=== PATIENT | male | born 1950 | race Caucasian/White ===

== ENCOUNTER 2016-12-27 15:40 | Emergency (ER) | payer OTHER ==
[2016-12-27 19:13] LABS: Hematocrit 49 % (42-52); Hemoglobin 16.1 g/dl (14.0-18.0); Mean Corpuscular HGB Conc 33 g/dl (31-36); Mean Corpuscular Hemoglobin 32 pg (27-31); Mean Corpuscular Volume 98 fL (80-94); Mean Platelet Volume 8 um3 (7.4-10.4); Red Cell Distribution Width 15 % (10.5-15); White Blood Count 10.9 10^3/ul (3.5-10.8)
[2016-12-27 19:29] LABS: Albumin 4.3 g/dL (3.2-5.2); BUN/Creatinine Ratio 16.2 (8-20); Calcium 10.4 mg/dL (8.6-10.3); EGFR African American 149.6 (>60); EGFR Non-African American 116.3 (>60); Potassium 4.2 mmol/L (3.5-5.0); Total Bilirubin 0.7 mg/dL (0.2-1.0); Total Protein 9.3 g/dL (6.4-8.9)
[2016-12-27 22:01] VITALS: BP 123/58
--- NOTE | 2016-12-27 22:03 | ED ---
I, DoctorLucrecia, scribed for Bryn Ya MD on 12/27/16 at 1649 . GI/ HPI - HPI Summary HPI Summary: 66 year old male arrived to [facility] c/o that his catheter was not fully in place. He reports feeling 'cold, clammy, and sweaty' as well; denies any n/v/d or fever. He has had a catheter in place (put in every 4 weeks) since 2009; he reports that the catheter that was placed today is not 'in all the way,' although it is draining. He has not experienced these symptoms previously. He is a non-smoker; he sees his PCP (Dr. Monteiro) regularly and lives at [facility]. - History of Current Complaint Chief Complaint: EDUrogenitalProblems Time Seen by Provider: 12/27/16 16:45 Stated Complaint: GROIN PAIN Hx Obtained From: Patient Onset/Duration: Started Hours Ago Associated Signs and Symptoms: Positive: Diaphoresis, Chills, Other: - "clammy" . Negative: Nausea, Vomiting, Diarrhea, Fever - Allergy/Home Medications Allergies/Adverse Reactions: Allergies Allergy/AdvReac Type Severity Reaction Status Date / Time No Known Allergies Allergy Verified 04/01/16 16:28 PMH/Surg Hx/FS Hx/Imm Hx Infectious Disease History: Yes Infectious Disease History: Denies: Traveled Outside the [place] in Last 30 Days - Social History Lives: Assisted Living - [place] Alcohol Use: None Substance Use Type: Reports: None Smoking Status (MU): Never Smoked Tobacco Review of Systems Positive: Chills, Skin Diaphoresis. Negative: Fever Negative: Vomiting, Diarrhea, Nausea All Other Systems Reviewed And Are Negative: Yes Physical Exam - Summary Physical Exam Summary: General appearance: well appearing, NAD, normal development, good nutrition, normal body habitus, well groomed HEENT: normocephalic, atraumatic, ears and nose without masses or lesions conjunctivae normal Neck: symmetric without masses or tracheal deviation, no thyromegaly Chest: normal respiratory effort Cardiovascular: good color, warmth, and capillary refill in extremities, no peripheral edema Skin: no visible rashes, lesions, or ulcers Abdomen: belly not distended, abdomen obese, soft, non-tender : bladder not distended Musculoskeletal: atrophy of lower extremities Neurological/Psychiatric: good fine motor coordination, sensation intact to light touch distally, cranial nerves II-XII grossly intact, appropriate judgment and insight, oriented to time, place and person, normal mood and affect Triage Information Reviewed: Yes Vital Signs On Initial Exam: Initial Vitals Temp Pulse Resp BP Pulse Ox 98 F 55 20 167/66 95 12/27/16 16:25 12/27/16 16:25 12/27/16 16:25 12/27/16 16:25 12/27/16 16:25 Vital Signs Reviewed: Yes - [place]man Coma Scale Coma Scale Total: 15 Diagnostics - Vital Signs Vital Signs Temp Pulse Resp BP Pulse Ox 12/27/16 16:25 98 F 55 20 167/66 95 - Laboratory Lab Results: Lab Results 12/27/16 12/27/16 12/27/16 Range/Units 19:02 19:02 19:02 WBC 10.9 H (3.5-10.8) 10^3/ul RBC 5.00 (4.0-5.4) 10^6/ul Hgb 16.1 (14.0-18.0) g/dl Hct 49 (42-52) % MCV 98 H (80-94) fL MCH 32 H (27-31) pg MCHC 33 (31-36) g/dl RDW 15 (10.5-15) % Plt Count 213 (150-450) 10^3/ul MPV 8 (7.4-10.4) um3 Neut % (Auto) 69.6 (38-83) % Lymph % (Auto) 20.3 L (25-47) % Gallia % (Auto) 7.5 (1-9) % Eos % (Auto) 1.9 (0-6) % Baso % (Auto) 0.7 (0-2) % Absolute Neuts (auto) 7.6 (1.5-7.7) 10^3/ul Absolute Lymphs (auto) 2.2 (1.0-4.8) 10^3/ul Absolute Monos (auto) 0.8 (0-0.8) 10^3/ul Absolute Eos (auto) 0.2 (0-0.6) 10^3/ul Absolute Basos (auto) 0.1 (0-0.2) 10^3/ul Absolute Nucleated RBC 0.01 10^3/ul Nucleated RBC % 0.1 INR (Anticoag Therapy) 2.50 H (0.89-1.11) Sodium (133-145) mmol/L Potassium (3.5-5.0) mmol/L Chloride (101-111) mmol/L Carbon Dioxide (22-32) mmol/L Anion Gap (2-11) mmol/L BUN (6-24) mg/dL Creatinine (0.67-1.17) mg/dL Est GFR ( Amer) (>60) Est GFR (Non-Af Amer) (>60) BUN/Creatinine Ratio (8-20) Glucose (70-100) mg/dL Lactic Acid 1.9 (0.5-2.0) mmol/L Calcium (8.6-10.3) mg/dL Total Bilirubin (0.2-1.0) mg/dL AST (13-39) U/L ALT (7-52) U/L Alkaline Phosphatase (34-104) U/L Total Protein (6.4-8.9) g/dL Albumin (3.2-5.2) g/dL Globulin (2-4) g/dL Albumin/Globulin Ratio (1-3) //17 Range/Units 19:02 WBC (3.5-10.8) 10^3/ul RBC (4.0-5.4) 10^6/ul Hgb (14.0-18.0) g/dl Hct (42-52) % MCV (80-94) fL MCH (27-31) pg MCHC (31-36) g/dl RDW (10.5-15) % Plt Count (150-450) 10^3/ul MPV (7.4-10.4) um3 Neut % (Auto) (38-83) % Lymph % (Auto) (25-47) % Gallia % (Auto) (1-9) % Eos % (Auto) (0-6) % Baso % (Auto) (0-2) % Absolute Neuts (auto) (1.5-7.7) 10^3/ul Absolute Lymphs (auto) (1.0-4.8) 10^3/ul Absolute Monos (auto) (0-0.8) 10^3/ul Absolute Eos (auto) (0-0.6) 10^3/ul Absolute Basos (auto) (0-0.2) 10^3/ul Absolute Nucleated RBC 10^3/ul Nucleated RBC % INR (Anticoag Therapy) (0.89-1.11) Sodium 135 (133-145) mmol/L Potassium 4.2 (3.5-5.0) mmol/L Chloride 99 L (101-111) mmol/L Carbon Dioxide 29 (22-32) mmol/L Anion Gap 7 (2-11) mmol/L BUN 11 (6-24) mg/dL Creatinine 0.68 (0.67-1.17) mg/dL Est GFR ( Amer) 149.6 (>60) Est GFR (Non-Af Amer) 116.3 (>60) BUN/Creatinine Ratio 16.2 (8-20) Glucose 118 H (70-100) mg/dL Lactic Acid (0.5-2.0) mmol/L Calcium 10.4 H (8.6-10.3) mg/dL Total Bilirubin 0.70 (0.2-1.0) mg/dL AST 42 H (13-39) U/L ALT 37 (7-52) U/L Alkaline Phosphatase 110 H (34-104) U/L Total Protein 9.3 H (6.4-8.9) g/dL Albumin 4.3 (3.2-5.2) g/dL Globulin 5.0 H (2-4) g/dL Albumin/Globulin Ratio 0.9 L (1-3) Result Diagrams: 12/27/16 19:02 12/27/16 19:02 Lab Statement: Any lab studies that have been ordered have been reviewed, and results considered in the medical decision making process. Re-Evaluation - Re-Evaluation First Eval Re-Evaluation Time: 18:42 Change: Unchanged Comment: Discussed treatment plan; labs pending Second Eval Re-Evaluation Time: 19:47 Change: Unchanged Comment: pt's stool is still bloody Third Eval Re-Evaluation Time: 20:56 Change: Improved - pt is feeling better GIGU Course/Dx - Course Course Of Treatment: 21:11 - Lagunas catheter replaced, but many blood clots present. Copious irrigation until catheter was clear. Labs are negative. - Diagnoses Differential Diagnoses - Male: Other - blocked lagunas, hematuria, Provider Diagnoses: Encounter for Lagunas catheter replacement, Clot hematuria, Anticoagulant long- term use Provider Diagnoses: (Ruled Out): Hematochezia Discharge - Discharge Plan Condition: Improved Disposition: HOME Patient Education Materials: Lagunas Catheter Placement and Care (ED) Referrals: Kenyon Suresh MD [Primary Care Provider] - Jorden OLIVEIRA,Nik Lopez [Medical Doctor] - The documentation as recorded by the Doctor sprague Tahera accurately reflects the service I personally performed and the decisions made by me, Bryn Ya MD.
== END 2016-12-27 22:24 | disposition home or self-care (01) ==
LOC: ED 15:40
DX: T83.9XXA Unspecified complication of genitourinary prosthetic device, implant and graft, initial encounter (principal); R68.83 Chills (without fever); R61 Generalized hyperhidrosis
CPT/HCPCS: 36415; 80053; 83605; 85025; 85610; 87040; 99283

== ENCOUNTER 2017-01-05 22:46 | Emergency (ER) | payer OTHER ==
--- NOTE | 2017-01-05 23:44 | ED ---
Complaint/Male - History of Current Complaint Chief Complaint: EDUrogenitalProblems Time Seen by Provider: 01/05/17 23:27 Hx Obtained From: Patient Onset/Duration: Sudden Onset Timing: Constant Severity Initially: Mild Severity Currently: Mild Location: None Associated Signs And Symptoms: Negative - Risk Factors Testicular Torsion: Negative - Allergies/Home Medications Allergies/Adverse Reactions: Allergies Allergy/AdvReac Type Severity Reaction Status Date / Time No Known Allergies Allergy Verified 04/01/16 16:28 PMH/Surg Hx/FS Hx/Imm Hx Previously Healthy: Yes - Immunization History Hx Pertussis Vaccination: No Immunizations Up to Date: No Infectious Disease History: Yes Infectious Disease History: Denies: Traveled Outside the [place] in Last 30 Days - Social History Occupation: Unemployed Lives: At [facility] Alcohol Use: None Hx Substance Use: No Substance Use Type: Reports: None Hx Tobacco Use: No Smoking Status (MU): Never Smoked Tobacco Review Of Systems Constitutional: Positive: Negative Skin: Positive: Negative Respiratory: Positive: Negative Cardiovascular: Positive: Negative Genitourinary: Positive: Negative Musculoskeletal: Positive: Negative Neurological: Positive: Negative Psychological: Positive: Negative All Other Systems Reviewed And Are Negative: Yes Physical Exam Triage Information Reviewed: Yes Vital Signs On Initial Exam: Initial Vitals Temp Pulse Resp BP Pulse Ox 99 F 73 18 155/55 99 01/05/17 22:52 01/05/17 22:52 01/05/17 22:52 01/05/17 22:52 01/05/17 22:52 Vital Signs Reviewed: Yes Appearance: Positive: Well-Appearing, No Pain Distress, Well-Nourished Skin: Positive: Warm, Skin Color Reflects Adequate Perfusion Head/Face: Positive: Normal Head/Face Inspection Eyes: Positive: EOMI, ARACELI, Conjunctiva Clear Neck: Positive: Supple, No Lymphadenopathy Respiratory/Lung Sounds: Positive: Clear to Auscultation, Breath Sounds Present Cardiovascular: Positive: Normal, RRR, Pulses are Symmetrical in both Upper and Lower Extremities Abdomen Description: Positive: Nontender Bowel Sounds: Positive: Present Musculoskeletal: Positive: Normal, Strength/ROM Intact Neurological: Positive: Speech Normal Psychiatric: Positive: Normal AVPU Assessment: Alert Diagnostics - Vital Signs Vital Signs Temp Pulse Resp BP Pulse Ox 01/05/17 22:52 99 F 73 18 155/55 99 - Laboratory Lab Statement: Any lab studies that have been ordered have been reviewed, and results considered in the medical decision making process. Complaint Male Course/Dx - Course Course Of Treatment: Pt stated that his indwelling cath is clogged. Nursing staff tried to flush it twice without success and no clots were seen, but previous clots - patient now concerned lagunas is clogged d/tc clots. Upon arrival to ED, lagunas catheter is patent and bag is 1/2 full. He states improvement and flowing urine occurred on way to ED. Patient has no complaints and OK with discharge. - Differential Dx/Diagnosis Differential Diagnosis/HQI/PQRI: Cancer, Pyelonephritis, Trauma, Urinary Tract Infection Provider Diagnoses: Lagunas catheter problem
[2017-01-06 01:24] VITALS: BP 150/47
== END 2017-01-06 01:23 | disposition home or self-care (01) ==
LOC: ED 22:46
DX: T83.9XXA Unspecified complication of genitourinary prosthetic device, implant and graft, initial encounter (principal)
CPT/HCPCS: 99281

== ENCOUNTER 2017-04-05 05:23 | Emergency (ER) | payer MEDICARE, OTHER ==
[2017-04-05 05:35] VITALS: BP 147/72
--- NOTE | 2017-04-05 05:48 | ED ---
Lelia Ray Rebecca, scribed for Ky Roldan MD on 04/05/17 at 0540 . GI/ HPI - HPI Summary HPI Summary: Pt is a 67 y/o M BIBA who presents to ED c/o clogged lagunas catheter. Pt reports he was not drinking enough fluids and that the lagunas got clogged. While en route to [facility], the catheter became unblocked and on arrival, it is draining as it should. Sx aggravated by nothing, alleviated by spontaneous resolution. - History of Current Complaint Chief Complaint: EDUrogenitalProblems Time Seen by Provider: 04/05/17 05:36 Stated Complaint: CATH ISSUES Hx Obtained From: Patient Onset/Duration: Resolved Current Severity: None Pain Intensity: 0 - Negative pain Associated Signs and Symptoms: Positive: Other: - Clogged lagunas - resolved Aggravating Factor(s): Nothing Alleviating Factor(s): Spontaneous Resolution - Allergy/Home Medications Allergies/Adverse Reactions: Allergies Allergy/AdvReac Type Severity Reaction Status Date / Time No Known Allergies Allergy Verified 04/01/16 16:28 PMH/Surg Hx/FS Hx/Imm Hx Cardiovascular History: Denies: Hx Coronary Artery Disease Neurological History: Reports: Other Neuro Impairments/Disorders - Paraplegic Infectious Disease History: No Infectious Disease History: Denies: Traveled Outside the [place] in Last 30 Days - Family History Known Family History: Negative: Hypertension - Social History Alcohol Use: None Hx Substance Use: No Substance Use Type: Reports: None Hx Tobacco Use: No Smoking Status (MU): Never Smoked Tobacco Review of Systems Negative: Fever Positive: other - Clogged lagunas catheter - resolved INCLUSION PARAEDUCATOR All Other Systems Reviewed And Are Negative: Yes Physical Exam Triage Information Reviewed: Yes Vital Signs On Initial Exam: Initial Vitals Temp Pulse Resp BP Pulse Ox 98.2 F 62 18 147/72 95 04/05/17 05:26 04/05/17 05:26 04/05/17 05:26 04/05/17 05:26 04/05/17 05:26 Vital Signs Reviewed: Yes Appearance: Positive: Well-Appearing, No Pain Distress Skin: Positive: Warm Head/Face: Positive: Normal Head/Face Inspection Eyes: Positive: ARACELI ENT: Positive: Hearing grossly normal Neck: Positive: Supple Respiratory/Lung Sounds: Positive: Breath Sounds Present Cardiovascular: Positive: RRR Abdomen Description: Positive: Nontender, Soft, Other: - catheter draining clear urine Bowel Sounds: Positive: Present Neurological: Positive: Alert, Oriented to Person Place, Time Psychiatric: Positive: Affect/Mood Appropriate Diagnostics - Vital Signs Vital Signs Temp Pulse Resp BP Pulse Ox 04/05/17 05:26 98.2 F 62 18 147/72 95 - Laboratory Lab Statement: Any lab studies that have been ordered have been reviewed, and results considered in the medical decision making process. Re-Evaluation - Re-Evaluation First Eval Change: Improved - lagunas catheter draining clear urine GIGU Course/Dx - Course Assessment/Plan: Pt is a 67 y/o M BIBA who presents to ED c/o clogged lagunas catheter. Pt reports he was not drinking enough fluids and that the lagunas got clogged. While en route to [facility], the catheter became unblocked and on arrival , it is draining as it should. He will be D/C to home with Dx of foleycatheter problem. He understands and agrees. - Diagnoses Provider Diagnoses: Lagunas catheter problem Discharge - Discharge Plan Condition: Stable Disposition: HOME Patient Education Materials: Lagunas Catheter Placement and Care (ED) Referrals: Kenyon Suresh MD [Primary Care Provider] - 3 Days The documentation as recorded by the Lelia sprague Rebecca accurately reflects the service I personally performed and the decisions made by , Ky Roldan MD.
== END 2017-04-05 05:52 | disposition home or self-care (01) ==
LOC: ED 05:23
DX: T83.091A Other mechanical complication of indwelling urethral catheter, initial encounter (principal); Y84.6 Urinary catheterization as the cause of abnormal reaction of the patient, or of later complication, without mention of misadventure at the time of the procedure; Y92.9 Unspecified place or not applicable
CPT/HCPCS: 99282

== ENCOUNTER 2017-04-28 03:43 | Emergency (ER) | payer MEDICARE ==
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
[2017-04-28 05:56] VITALS: BP 112/54
== END 2017-04-28 05:54 | disposition home or self-care (01) ==
LOC: ED 03:43
DX: T83.9XXA Unspecified complication of genitourinary prosthetic device, implant and graft, initial encounter (principal); N39.0 Urinary tract infection, site not specified; G82.20 Paraplegia, unspecified
CPT/HCPCS: 99282

== ENCOUNTER 2017-05-02 08:29 | Inpatient (IN) | payer MEDICARE ==
--- NOTE | 2017-05-02 09:32 | RAD ---
HISTORY: Shortness of breath COMPARISONS: None VIEWS: 3: Frontal and lateral views of the chest. The lateral projection is technically limited FINDINGS: CARDIOMEDIASTINAL SILHOUETTE: The cardiac silhouette is enlarged. The cardiomediastinal silhouette is otherwise normal. FREIDA: The freida are normal. PLEURA: There is a small left pleural effusion. LUNG PARENCHYMA: There is focal opacification of the left lower lung ABDOMEN: The upper abdomen is clear. There is no subphrenic gas. BONES AND SOFT TISSUES: No bone or soft tissue abnormalities are noted. OTHER: None. IMPRESSION: 1. CARDIOMEGALY. 2. SMALL LEFT PLEURAL EFFUSION. 3. LEFT BASILAR OPACIFICATION. THE DIFFERENTIAL INCLUDES PNEUMONIC CONSOLIDATION VERSUS PULMONARY PARENCHYMAL MASS. RECOMMEND FOLLOW-UP UNTIL RESOLUTION TO EXCLUDE UNDERLYING PULMONARY PARENCHYMAL PATHOLOGY. IF THE CLINICAL PRESENTATION IS NOT CONSISTENT WITH INFECTION, CONSIDER FURTHER EVALUATION WITH CONTRAST-ENHANCED CT OF THE CHEST.
[2017-05-02 09:44] LABS: Hematocrit 33 % (42-52); Hemoglobin 11.5 g/dl (14.0-18.0); Mean Corpuscular HGB Conc 35 g/dl (31-36); Mean Corpuscular Hemoglobin 33 pg (27-31); Mean Corpuscular Volume 96 fL (80-94); Mean Platelet Volume 7 um3 (7.4-10.4); Red Cell Distribution Width 15 % (10.5-15); White Blood Count 13.2 10^3/ul (3.5-10.8)
[2017-05-02 09:49] LABS: Add Diff/Slide Review? Slide Review Added; Comments Flag Yes
[2017-05-02 10:01] LABS: Albumin 3.4 g/dL (3.2-5.2); BUN/Creatinine Ratio 10.2 (8-20); C Reactive Protein 80.62 mg/L (< 5.00); Calcium 8.4 mg/dL (8.6-10.3); EGFR African American 175.7 (>60); EGFR Non-African American 136.6 (>60); Globulin 3.9 g/dL (2-4); Potassium 4.2 mmol/L (3.5-5.0); Total Bilirubin 0.8 mg/dL (0.2-1.0); Total Protein 7.3 g/dL (6.4-8.9)
[2017-05-02 10:42] LABS: Immature Granulocytes 10 % (0-9); Neutrophil % 73 % (38-83); RBC Morphology Normal (Normal)
[2017-05-02] MEDS ORDERED: cefTRIAXone(*) 1 GM in NS 0.9% 50 ML* 50 ML IVPB ONE (11:05)
[2017-05-02] MEDS ORDERED: Azithromycin IV* 500 MG ADVAN VIAL IVPB ONE (11:06)
[2017-05-02] MEDS ORDERED: Acetaminophen TAB* 325 MG PO PRN (11:43)
[2017-05-02] MEDS ORDERED: Diazepam TAB(*) 2 MG PO PRN ×2 (11:45)
[2017-05-02] MEDS ORDERED: Baclofen TAB* 10 MG PO PRN (11:45)
[2017-05-02] MEDS ORDERED: Dextrose 50% Syringe 50 ML* 25 GM/50 ML SYRINGE IV PUSH PRN (11:46)
[2017-05-02 12:01] LABS: Add on Test ED Complete
[2017-05-02 13:08] LABS: Troponin I 0.05 ng/mL (<0.04)
[2017-05-02 13:38] LABS: Uric Acid 2.8 mg/dL (4.4-7.6)
[2017-05-02] MEDS: Sodium Chloride TAB* 1 GM PO SCH ×2 (15:14→21:43)
[2017-05-02] MEDS ORDERED: Albuterol/Ipratropium NEB.SOL* Albuterol 2.5 MG/Ipratropium 0.5 MG 3 ML INH PRN (15:50)
[2017-05-02] MEDS ORDERED: Albuterol/Ipratropium NEB.SOL* Albuterol 2.5 MG/Ipratropium 0.5 MG 3 ML ONE (15:56)
[2017-05-02] MEDS: Warfarin TAB(*) 1 MG PO SCH (16:48)
[2017-05-02] MEDS: Insulin LISPRO* 1 UNITS UNIT SUBCUT SCH (16:54)
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
[2017-05-02 19:10] LABS: Troponin I 0.03 ng/mL (<0.04)
[2017-05-02] MEDS: Baclofen TAB* 10 MG PO SCH (21:43)
[2017-05-02] MEDS: Docusate CAP* 100 MG PO SCH (21:44)
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
[2017-05-02 23:03] LABS: Troponin I 0.04 ng/mL (<0.04)
[2017-05-03 06:13] LABS: Hematocrit 34 % (42-52); Hemoglobin 11.5 g/dl (14.0-18.0); Mean Corpuscular HGB Conc 34 g/dl (31-36); Mean Corpuscular Hemoglobin 33 pg (27-31); Mean Corpuscular Volume 96 fL (80-94); Mean Platelet Volume 7 um3 (7.4-10.4); Red Blood Count 3.53 10^6/ul (4.0-5.4); Red Cell Distribution Width 15 % (10.5-15); White Blood Count 13.7 10^3/ul (3.5-10.8)
[2017-05-03 06:24] LABS: BUN/Creatinine Ratio 10.2 (8-20); Calcium 8.7 mg/dL (8.6-10.3); EGFR African American 217.7 (>60); EGFR Non-African American 169.3 (>60); Potassium 5.1 mmol/L (3.5-5.0)
[2017-05-03] MEDS ORDERED: Sodium Chloride 3% HYPERTONIC* 500 ML IVPB ONE (06:45)
[2017-05-03] MEDS: Insulin LISPRO* 1 UNITS UNIT SUBCUT SCH ×3 (07:54→17:04)
[2017-05-03] MEDS: cefTRIAXone VIAL(*) 1,000 MG in NS 0.9% 50 ML* 50 ML IVPB SCH (08:49)
--- NOTE | 2017-05-03 08:51 | PN ---
Subjective Date of Service: 05/03/17 Interval History: Mr. Wahl states that he is feeling relatively well today. He reports some shortness of breath but denies chest pain. He further denies nausea or abdominal pain. Objective Active Medications: Acetaminophen (Tylenol Tab*) 650 mg PO Q6H PRN Albuterol/Ipratropium (Duoneb (Albuterol 2.5 Mg/Ipratropium 0.5 Mg)) 1 neb INH Q4H PRN Azithromycin (Zithromax Iv(*)) 500 mg IVPB Q24H YAZAN Baclofen (Lioresal Tab*) 10 mg PO BID PRN Baclofen (Lioresal Tab*) 20 mg PO BID [facility] Clobetasol Propionate (Clobetasol 0.05% Oint*) 1 applic TOPICAL QAM [facility] Dextrose (D50w Syringe 50 Ml*) 12.5 gm IV PUSH .FOR FS < 60 - SS PRN Diazepam (Valium Tab(*)) 1 mg PO 1200 PRN Diazepam (Valium Tab(*)) 2 mg PO BID PRN Docusate Sodium (Colace Cap*) 100 mg PO BID [facility] Ceftriaxone Sodium 1,000 mg/ (Sodium Chloride) 50 mls @ 200 mls/hr IVPB Q24H [facility] Sodium Chloride (Hypertonic) (Hypertonic Sod Chloride 3%*) 500 mls @ 50 mls/hr IVPB ONCE ONE; Per Protocol Insulin Human Lispro (Humalog*) 0 units SUBCUT AC [facility] Lisinopril (Prinivil Tab*) 10 mg PO DAILY [facility] Pharmacy Profile Note (Coumadin Daily Reminder*) 1 note FOLLOW UP 1700 [facility] Warfarin Sodium (Coumadin Tab(*)) 1.5 mg PO 1700 [facility] Vital Signs 05/02/17 05/02/17 05/02/17 12:00 12:34 12:47 Temperature 97.6 F Pulse Rate 64 72 74 Respiratory 14 20 15 Rate Blood Pressure 126/48 124/66 117/51 (mmHg) O2 Sat by Pulse 93 94 93 Oximetry 05/02/17 05/02/17 05/02/17 13:00 13:01 13:16 Temperature Pulse Rate 71 73 Respiratory 18 17 18 Rate Blood Pressure 108/54 116/60 (mmHg) O2 Sat by Pulse 95 96 Oximetry 08/18/17 08/18/17 08/18/17 13:30 13:45 14:00 Temperature Pulse Rate 60 59 60 Respiratory 17 12 16 Rate Blood Pressure 123/55 120/58 127/53 (mmHg) O2 Sat by Pulse 95 95 90 Oximetry 05/02/17 05/02/17 05/02/17 14:15 14:30 14:45 Temperature Pulse Rate 63 64 70 Respiratory 17 14 16 Rate Blood Pressure 117/51 126/54 136/53 (mmHg) O2 Sat by Pulse 88 91 88 Oximetry 05/02/17 05/02/17 05/02/17 14:56 15:00 15:42 Temperature Pulse Rate 87 Respiratory 18 16 18 Rate Blood Pressure 155/76 (mmHg) O2 Sat by Pulse 95 Oximetry 05/02/17 05/02/17 05/02/17 15:45 16:04 16:32 Temperature 97.1 F Pulse Rate 96 79 Respiratory 18 17 Rate Blood Pressure 144/59 (mmHg) O2 Sat by Pulse 88 91 Oximetry 05/02/17 05/02/17 05/02/17 17:00 18:00 19:00 Temperature Pulse Rate 81 76 75 Respiratory 21 17 21 Rate Blood Pressure 144/55 157/63 146/65 (mmHg) O2 Sat by Pulse 95 93 91 Oximetry 05/02/17 05/02/17 05/02/17 20:00 21:00 21:44 Temperature 98.4 F Pulse Rate 73 74 Respiratory 21 20 19 Rate Blood Pressure 157/70 143/69 (mmHg) O2 Sat by Pulse 95 94 Oximetry 05/02/17 05/02/17 05/02/17 22:00 22:01 23:00 Temperature Pulse Rate 80 79 74 Respiratory 28 23 20 Rate Blood Pressure 164/64 115/44 (mmHg) O2 Sat by Pulse 95 96 94 Oximetry 05/02/17 05/03/17 05/03/17 23:34 00:00 00:48 Temperature 97.6 F Pulse Rate 67 79 Respiratory 18 17 Rate Blood Pressure 157/56 (mmHg) O2 Sat by Pulse 96 93 94 Oximetry 05/03/17 05/03/17 05/03/17 01:00 02:00 02:01 Temperature Pulse Rate 73 86 76 Respiratory 22 22 17 Rate Blood Pressure 134/56 160/68 (mmHg) O2 Sat by Pulse 95 93 92 Oximetry 05/03/17 05/03/17 05/03/17 02:15 03:00 03:01 Temperature Pulse Rate 80 80 83 Respiratory 22 19 17 Rate Blood Pressure 154/72 112/54 (mmHg) O2 Sat by Pulse 92 93 93 Oximetry 05/03/17 05/03/17 05/03/17 04:00 04:01 05:00 Temperature 100 F Pulse Rate 84 86 81 Respiratory 21 32 21 Rate Blood Pressure 145/64 156/72 (mmHg) O2 Sat by Pulse 93 93 95 Oximetry 05/03/17 05/03/17 05/03/17 06:00 06:34 07:38 Temperature 98.2 F Pulse Rate 80 76 Respiratory 16 22 Rate Blood Pressure 137/56 (mmHg) O2 Sat by Pulse 94 94 Oximetry Oxygen Devices in Use Now: Simple Face Mask Appearance: Male lying in bed in NAD Eyes: No Scleral Icterus Ears/Nose/Mouth/Throat: Mucous Membranes Moist Neck: Trachea Midline Respiratory: Symmetrical Chest Expansion and Respiratory Effort, - - Diminished with rhonchi bilaterally Cardiovascular: NL Sounds; No Murmurs; No JVD Abdominal: NL Sounds; No Tenderness; No Distention Lymphatic: No Cervical Adenopathy Extremities: No Edema Skin: - - Chronic skin changes to bilateral LEs with history of skin grafts Neurological: Alert and Oriented x 3, - - Paraplegic Result Diagrams: 05/03/17 05:50 05/03/17 05:50 Additional Lab and Data: Lab Results 05/02/17 05/02/17 05/02/17 Range/Units 09:33 09:33 09:33 WBC 13.2 H (3.5-10.8) 10^3/ul RBC 3.50 L (4.0-5.4) 10^6/ul Hgb 11.5 L (14.0-18.0) g/dl Hct 33 L (42-52) % MCV 96 H (80-94) fL MCH 33 H (27-31) pg MCHC 35 (31-36) g/dl RDW 15 (10.5-15) % Plt Count 200 (150-450) 10^3/ul MPV 7 L (7.4-10.4) um3 Immature Gran % (Auto) 10 H (0-9) % Neut % (Auto) 79.3 (38-83) % Lymph % (Auto) 12.9 L (25-47) % [place] % (Auto) 7.3 (1-9) % Eos % (Auto) 0.1 (0-6) % Baso % (Auto) 0.4 (0-2) % Absolute Neuts (auto) 10.5 H (1.5-7.7) 10^3/ul Absolute Lymphs (auto) 1.7 (1.0-4.8) 10^3/ul Absolute Monos (auto) 1.0 H (0-0.8) 10^3/ul Absolute Eos (auto) 0 (0-0.6) 10^3/ul Absolute Basos (auto) 0.1 (0-0.2) 10^3/ul Absolute Nucleated RBC 0.01 10^3/ul Neutrophils % 73 (38-83) % Band Neutrophils % 10 H (0-8) % Lymphocytes % 11 L (25-47) % Monocytes % 6 (0-13) % Nucleated RBC % 0 Normal RBC Morphology Normal (Normal) INR (Anticoag Therapy) 2.21 H (0.89-1.11) APTT 38.1 H (26.0-36.3) seconds Sodium 113 L* (133-145) mmol/L Potassium 4.2 (3.5-5.0) mmol/L Chloride 82 L (101-111) mmol/L Carbon Dioxide 25 (22-32) mmol/L Anion Gap 6 (2-11) mmol/L BUN 6 (6-24) mg/dL Creatinine 0.59 L (0.67-1.17) mg/dL Est GFR ( Amer) 175.7 (>60) Est GFR (Non-Af Amer) 136.6 (>60) BUN/Creatinine Ratio 10.2 (8-20) Glucose 142 H (70-100) mg/dL Hemoglobin A1c (Less than 6.0) % Lactic Acid (0.5-2.0) mmol/L Uric Acid 2.8 L (4.4-7.6) mg/dL Calcium 8.4 L (8.6-10.3) mg/dL Total Bilirubin 0.80 (0.2-1.0) mg/dL AST 42 H (13-39) U/L ALT 34 (7-52) U/L Alkaline Phosphatase 57 (34-104) U/L Total Creatine Kinase 203 (10-223) U/L CK-MB (CK-2) 3.0 (0.6-6.3) ng/mL Troponin I 0.05 H* (<0.04) ng/mL C-Reactive Protein 80.62 H (< 5.00) mg/L B-Natriuretic Peptide ( - 100) pg/mL Total Protein 7.3 (6.4-8.9) g/dL Albumin 3.4 (3.2-5.2) g/dL Globulin 3.9 (2-4) g/dL Albumin/Globulin Ratio 0.9 L (1-3) 05/02/17 05/02/17 05/02/17 Range/Units 09:33 09:33 09:33 WBC (3.5-10.8) 10^3/ul RBC (4.0-5.4) 10^6/ul Hgb (14.0-18.0) g/dl Hct (42-52) % MCV (80-94) fL MCH (27-31) pg MCHC (31-36) g/dl RDW (10.5-15) % Plt Count (150-450) 10^3/ul MPV (7.4-10.4) um3 Immature Gran % (Auto) (0-9) % Neut % (Auto) (38-83) % Lymph % (Auto) (25-47) % [place] % (Auto) (1-9) % Eos % (Auto) (0-6) % Baso % (Auto) (0-2) % Absolute Neuts (auto) (1.5-7.7) 10^3/ul Absolute Lymphs (auto) (1.0-4.8) 10^3/ul Absolute Monos (auto) (0-0.8) 10^3/ul Absolute Eos (auto) (0-0.6) 10^3/ul Absolute Basos (auto) (0-0.2) 10^3/ul Absolute Nucleated RBC 10^3/ul Neutrophils % (38-83) % Band Neutrophils % (0-8) % Lymphocytes % (25-47) % Monocytes % (0-13) % Nucleated RBC % Normal RBC Morphology (Normal) INR (Anticoag Therapy) (0.89-1.11) APTT (26.0-36.3) seconds Sodium (133-145) mmol/L Potassium (3.5-5.0) mmol/L Chloride (101-111) mmol/L Carbon Dioxide (22-32) mmol/L Anion Gap (2-11) mmol/L BUN (6-24) mg/dL Creatinine (0.67-1.17) mg/dL Est GFR ( Amer) (>60) Est GFR (Non-Af Amer) (>60) BUN/Creatinine Ratio (8-20) Glucose (70-100) mg/dL Hemoglobin A1c 6.9 H (Less than 6.0) % Lactic Acid 1.9 (0.5-2.0) mmol/L Uric Acid (4.4-7.6) mg/dL Calcium (8.6-10.3) mg/dL Total Bilirubin (0.2-1.0) mg/dL AST (13-39) U/L ALT (7-52) U/L Alkaline Phosphatase (34-104) U/L Total Creatine Kinase (10-223) U/L CK-MB (CK-2) (0.6-6.3) ng/mL Troponin I (<0.04) ng/mL C-Reactive Protein (< 5.00) mg/L B-Natriuretic Peptide 42 ( - 100) pg/mL Total Protein (6.4-8.9) g/dL Albumin (3.2-5.2) g/dL Globulin (2-4) g/dL Albumin/Globulin Ratio (1-3) Microbiology and Other Data: Microbiology 05/02/17 13:11 Legionella Urinary Antigen - Final Urine Negative Legionella Streptococcus pneumoniae Ag Screen - Final Negative S. pneumo Antigen Assess/Plan/Problems-Billing Assessment: Mr. Wahl is a 67 yo male with a PMH of paraplegia after an accident at age 17, chronic lagunas, and hypertension who was admitted on 05/02/17 with acute respiratory failure and hyponatremia secondary to left lower lobe pneumonia and SIADH. - Patient Problems (1) Hyponatremia Comment: - Na improving slowly with fluid restriction and sodium tabs. - Continue to monitor closely. (2) Pneumonia Comment: - With acute hypoxic respiratory failure, now on 10L. - Continue to titrate O2. - Continue ceftriaxone and azithromycin. 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 - Strep pneumo and legionella antigens negative. (3) UTI (urinary tract infection) Comment: - Note that patient has chronic lagunas. 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 - Lisinopril on hold during acute illness. (5) DVT prophylaxis Comment: - Warfarin with therapeutic INR. (6) Full code status Status and Disposition: Inpatient with critical illness and expected LOS > 2 days. Anticipate return to [place] when medically stable.
[2017-05-03] MEDS: Baclofen TAB* 10 MG PO SCH ×2 (08:53→20:40)
[2017-05-03] MEDS: Docusate CAP* 100 MG PO SCH ×2 (08:53→20:40)
[2017-05-03] MEDS: Lisinopril TAB* 10 MG PO SCH (08:53)
[2017-05-03] MEDS ORDERED: Warfarin TAB(*) 1 MG PO SCH (09:00)
[2017-05-03] MEDS ORDERED: Vancomycin(*) 1,250 MG in NS 0.9% 250 ML* 250 ML IVPB ONE (09:00)
[2017-05-03] MEDS: Azithromycin IV* 500 MG ADVAN VIAL IVPB SCH (09:02)
[2017-05-03] MEDS: Clobetasol 0.05% OINT* 30 GM TUBE TOPICAL SCH (10:27)
[2017-05-03] MEDS ORDERED: Sodium Chloride TAB* 1 GM PO ONE (10:32)
[2017-05-03] MEDS: Sodium Chloride TAB* 1 GM PO SCH ×2 (14:07→20:40)
[2017-05-03] MEDS: Warfarin TAB(*) 1 MG PO SCH (17:20)
[2017-05-03] MEDS: Vancomycin(*) 1,000 MG in NS 0.9% 250 ML* 250 ML IVPB SCH (18:22)
[2017-05-04 02:06] LABS: EPAP 8; FIO2 100; IPAP 18; Resp Rate 4
[2017-05-04 02:07] LABS: PCO2 Arterial 98 mmHg (35-45)
[2017-05-04] MEDS: Vancomycin(*) 1,000 MG in NS 0.9% 250 ML* 250 ML IVPB SCH ×2 (02:38→12:22)
[2017-05-04] MEDS ORDERED: Furosemide IV* 10 MG/ML VIAL (40 MG) IV ONE (03:46)
[2017-05-04] MEDS ORDERED: Succinylcholine* 20 MG/ML 10 ML VIAL ONE (04:32)
[2017-05-04] MEDS ORDERED: Midazolam* 1 MG/ML 10 ML VIAL (10 MG) ONE (04:39)
[2017-05-04] MEDS ORDERED: DOPamine 200 MG/250 ML IVPREM* 200 MG/250 ML ML IV ONE (05:18)
--- NOTE | 2017-05-04 05:18 | PN ---
Progress Note - Progress Note Date of Service: 05/04/17 Note: Event note: Patient had new hypoxia in 88-89 O2 sat range earlier in night around 3am. He was less responsive. We started him on BiPAP which he tolerated, and portable CXR showed complete opacification of LT lung. ABG showed pH 7.14, pCO2 74, adequate oxygenation. He was obtunded, did not respond to sternal rub or arterial stick. Decision was made to place ET tube. Patient sedated w/ 10 mg versed. 8f ET tube placed w/ glidescope but would not pass fully into place due to apparent tracheal stenosis. 7f ET tube placed w/ glidescope, advanced w/ some difficulty. [place] frothy sputum suctioned, copious. There was some initial tachycardia, hypotension, resolved w/o intervention. There was some difficulty getting adequate tidal volumes, this improved w/ suctioning, got better volumes but requiring peak pressure around 40. Repeat CXR showed tube in place above the davey, needed 2 cm advancement. OG tube in stomach. Less opacification seen in L lung field.
[2017-05-04] MEDS ORDERED: DOPamine 200 MG/250 ML IVPREM* 200 MG/250 ML ML IV SCH (05:30)
[2017-05-04 06:07] LABS: FIO2 100; Resp Rate 20
[2017-05-04 06:13] LABS: PCO2 Arterial 117 mmHg (35-45)
[2017-05-04 06:54] LABS: Hematocrit 39 % (42-52); Hemoglobin 13.2 g/dl (14.0-18.0); Mean Corpuscular HGB Conc 33 g/dl (31-36); Mean Corpuscular Hemoglobin 33 pg (27-31); Mean Corpuscular Volume 99 fL (80-94); Mean Platelet Volume 7 um3 (7.4-10.4); Red Blood Count 3.99 10^6/ul (4.0-5.4); Red Cell Distribution Width 15 % (10.5-15); White Blood Count 20.4 10^3/ul (3.5-10.8)
[2017-05-04 06:55] LABS: Add Diff/Slide Review? Slide Review Added; Comments Flag Yes
[2017-05-04 07:07] LABS: BUN/Creatinine Ratio 13.8 (8-20); Calcium 8.9 mg/dL (8.6-10.3); EGFR African American 179.2 (>60); EGFR Non-African American 139.3 (>60); Magnesium 2.1 mg/dL (1.9-2.7); Phosphorus 3.7 mg/dL (2.5-5.0)
[2017-05-04 07:28] LABS: Immature Granulocytes 8 % (0-9); Neutrophil % 85 % (38-83); RBC Morphology Normal (Normal)
--- NOTE | 2017-05-04 07:39 | RAD ---
INDICATION: Intubation COMPARISON: May 04, 2017 TECHNIQUE: An AP portable view obtained at 0456 hours is submitted. FINDINGS: Bones/Soft Tissues: There are no acute bony findings. There is interval endotracheal intubation. Endotracheal tube is in satisfactory position approximately 4 cm above the davey. A nasogastric tube passes normally through the mediastinum Cardiomediastinal: The cardiomediastinal silhouette is normal. There is interstitial edema. Lungs: There is now aeration of the left hemithorax. There is moderate interstitial and alveolar change in the lung bases. Pleura: Small bilateral pleural effusions. Other: None IMPRESSION: ENDOTRACHEAL TUBE IN PROPER POSITION. THERE IS NOW AERATION OF THE LEFT HEMITHORAX. MILD INTERSTITIAL AND ALVEOLAR EDEMA IS SUSPECTED.
--- NOTE | 2017-05-04 07:40 | RAD ---
INDICATION: Respiratory failure COMPARISON: May 02, 2017 TECHNIQUE: An AP portable view obtained at 0356 hours is submitted. FINDINGS: Bones/Soft Tissues: There are no acute bony findings. Cardiomediastinal: The cardiac silhouette is difficult to evaluate due to opacification left hemithorax. This represents a new finding. Lungs: There is airspace disease in the right lung base. This is new. Pleura: Small bilateral effusions. Other: None IMPRESSION: THERE IS NOW COMPLETE OPACIFICATION LEFT HEMITHORAX AND THERE IS CONSOLIDATIVE CHANGE RIGHT LUNG BASE WITH BILATERAL EFFUSIONS.
[2017-05-04] MEDS ORDERED: Midazolam* 1 MG/ML 5 ML VIAL (5 MG) ONE (08:32)
[2017-05-04] MEDS ORDERED: Norepinephrine 16MCG/ML IVPRE* 4,000 MCG/250 ML BAG IV ONE (08:32)
[2017-05-04] MEDS ORDERED: Propofol* 100 ML ONE (08:32)
[2017-05-04 08:36] LABS: PCO2 Arterial 92 mmHg (35-45)
--- NOTE | 2017-05-04 08:49 | PN ---
Progress Note - Progress Note Date of Service: 05/04/17 Note: Central Line Procedure Note Indication: Hypotension/shock, poor vascular access Consent was informed and obtained from brother , placed in bedside chart. Risks of procedure were explained if possible, all risks of pain/discomfort, bleeding, infection, PTX, Hemotx, need for chest tube, air/wire embolism, vessel injury, , and failed procedure disclosed and understanding verbalized - Prior labs/history was reviewed prior to procedure - Full sterile precautions with chlorhexidine/full drapes/gowns/gloves utilized - left IJ vein visualized with ultrasound; right IJ small and not a good target - Vessel accessed under ultrasound guidance with return of nonpulsatile blood. A guidewire was passed into vessel and confirmed in vessel with ultrasound. 1 attempt was made to access vessel. Vessel was dilated and cathetor was passed over wire into vessel. All ports demonstrated good blood return and flushed. Catheter was sutured to site and dressing applied Adequate hemostasis was achieved, EBL 4 cc No immediate complications noted, patient tolerated procedure well. CXR pending for confirmation Titus Goodman MD [employer] (electronically signed)
--- NOTE | 2017-05-04 08:49 | PN ---
Progress Note - Progress Note Date of Service: 05/04/17 Note: Arterial Line Procedure Note Indication: hypotension/shock, respiratory failure, need for continuos blood gases Consent was informed and obtained from brother , placed in bedside chart. Risk/Benefits of procedure explained. - Prior labs/history was reviewed prior to procedure - Full sterile precautions with chlorhexidine/full drapes/gowns/gloves utilized - rigth radial artery visualized with US - Vessel accessed with return of pulsatile blood. 1 attempt was made to access vessel. A cathetor was threaded over wire into vessel. Good arterial waveform was observed on monitor. - Arterial Catheter was sutured to site - Adequate hemostasis was achieved, EBL 2 cc No immediate complications noted, patient tolerated procedure well. Dressing applied to site. Titus Goodman MD [place] (electronically signed)
[2017-05-04] MEDS ORDERED: Albuterol (2.5 MG) 0.5 % CONC 2.5 MG/0.5 ML NEB.SOLN (ICU and ED only) INH STA (08:58)
[2017-05-04] MEDS ORDERED: methylPREDNISolone 125 MG* 2 ML VIAL IV STA (09:00)
[2017-05-04] MEDS ORDERED: Terbutaline INJ* 1 MG/ML VIAL SUBCUT ONE (09:01)
[2017-05-04] MEDS ORDERED: NS 0.9% 500 ML BAG* 500 ML IV ONE (09:03)
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
[2017-05-04] MEDS: Propofol* 100 ML IV SCH ×2 (09:14→17:15)
--- NOTE | 2017-05-04 09:18 | RAD ---
INDICATION: Central line placement COMPARISON: Chest x-ray ,017 TECHNIQUE: An AP portable view obtained at 0836 hours is submitted. FINDINGS: Bones/Soft Tissues: There are no acute bony findings. The endotracheal and nasogastric tubes remain in satisfactory positions. There is now a left IJ catheter terminating in the superior vena cava. There is no pneumothorax. Cardiomediastinal: Mild prominence the cardiac silhouette. Lungs: Interstitial and alveolar change likely edema although there could also be a acute pneumonitis.. Pleura: Small bilateral effusions. Other: None IMPRESSION: IJ CATHETER IN EXPECTED POSITION. NO PNEUMOTHORAX. ENDOTRACHEAL TUBE IN SATISFACTORY POSITION. SUSPECT MILD INTERSTITIAL AND ALVEOLAR EDEMA
[2017-05-04] MEDS: cefTRIAXone VIAL(*) 1,000 MG in NS 0.9% 50 ML* 50 ML IVPB SCH (09:26)
[2017-05-04] MEDS ORDERED: Vancomycin(*) 1,250 MG IV x ONCE IVPB ONE ×2 (10:00)
[2017-05-04] MEDS ORDERED: Vancomycin Trough Check NOTE FOLLOW UP ONE (10:00)
[2017-05-04] MEDS ORDERED: Vancomycin(*) 1,000 MG in NS 0.9% 250 ML* 250 ML IVPB SCH (10:00)
[2017-05-04] MEDS ORDERED: Vancomycin per Pharmacy* NOTE FOLLOW UP SCH (10:00)
[2017-05-04] MEDS: Insulin LISPRO* 1 UNITS UNIT SUBCUT SCH ×4 (10:00→23:58)
[2017-05-04] MEDS: Azithromycin IV(*) 500 MG in NS 0.9% 250 ML* 250 ML IVPB SCH (10:50)
[2017-05-04 10:59] LABS: Venous Bicarbonate HCO3 21.4 mmol/L (24-28)
[2017-05-04] MEDS: Dexmedetomidine* 200 MCG in NS 0.9% 50 ML* 48 ML IVPB SCH ×2 (11:12→17:50)
[2017-05-04] MEDS: Docusate CAP* 100 MG PO SCH ×2 (11:13→21:41)
[2017-05-04] MEDS: Baclofen TAB* 10 MG PO SCH ×2 (11:13→21:15)
[2017-05-04] MEDS: Lisinopril TAB* 10 MG PO SCH (11:13)
[2017-05-04] MEDS: Sodium Chloride TAB* 1 GM PO SCH ×3 (11:13→21:40)
[2017-05-04] MEDS: Chlorhexidine MOUTHWASH 0.12%* 15 ML UDC TOPICAL SCH ×4 (11:50→21:16)
[2017-05-04 12:12] LABS: PCO2 Arterial 77 mmHg (35-45)
[2017-05-04] MEDS: Norepinephrine 16MCG/ML IVPRE* 4,000 MCG/250 ML BAG IV SCH ×2 (13:51→21:16)
[2017-05-04] MEDS: Clobetasol 0.05% OINT* 30 GM TUBE TOPICAL SCH (13:51)
[2017-05-04] MEDS: Vancomycin(*) 750 MG in NS 0.9% 250 ML* 250 ML IVPB SCH ×2 (13:53→23:09)
[2017-05-04 15:09] LABS: FIO2 100; Resp Rate 28
[2017-05-04] MEDS: Albuterol/Ipratropium NEB.SOL* Albuterol 2.5 MG/Ipratropium 0.5 MG 3 ML INH PRN ×3 (15:12→23:38)
[2017-05-04 15:13] LABS: PCO2 Arterial 61 mmHg (35-45)
[2017-05-04 15:28] LABS: Urine Bacteria Absent (Absent); Urine Bilirubin Negative (Negative); Urine Glucose 1+(50 mg/dL) (Negative); Urine Nitrite Negative (Negative)
--- NOTE | 2017-05-04 15:51 | PN ---
Progress Note - Progress Note Date of Service: 05/04/17 Note: ABG reviewed - PCO2 slowly improving, po2 70 on 70% peep 14. Cont current vent settings CXR with bilateral infiltrates but more on left than right; edema vs pneumonitis Will cont to tx for pneumonia. Would attempt to place on ARDS net protocol; being cautious of the hypercapnea. Requiring hi peep still. Titus Goodman Marking [employer]cher
[2017-05-04] MEDS: methylPREDNISolone 125 MG* 2 ML VIAL IV SCH ×2 (16:41→23:59)
[2017-05-04] MEDS ORDERED: NS IV SCH ×4 (17:00)
[2017-05-04] MEDS ORDERED: NS IV ONE ×2 (17:00)
[2017-05-04] MEDS ORDERED: SODIUM BICARBONATE IV ONE ×2 (17:00)
[2017-05-04] MEDS ORDERED: SODIUM BICARBONATE IV SCH ×4 (17:00)
[2017-05-04 20:43] LABS: PCO2 Arterial 49 mmHg (35-45)
[2017-05-04] MEDS: Warfarin TAB(*) 1 MG PO SCH (21:15)
[2017-05-04] MEDS ORDERED: Lactated Ringers 500 ml BAG* 500 ML IV ONE (23:00)
[2017-05-05] MEDS: Propofol* 100 ML IV SCH ×4 (02:13→21:45)
[2017-05-05] MEDS: Chlorhexidine MOUTHWASH 0.12%* 15 ML UDC TOPICAL SCH ×6 (02:54→21:25)
[2017-05-05] MEDS: Dexmedetomidine* 200 MCG in NS 0.9% 50 ML* 48 ML IVPB SCH (02:55)
[2017-05-05 06:13] LABS: Hematocrit 35 % (42-52); Hemoglobin 11.6 g/dl (14.0-18.0); Mean Corpuscular HGB Conc 34 g/dl (31-36); Mean Corpuscular Hemoglobin 33 pg (27-31); Mean Corpuscular Volume 97 fL (80-94); Mean Platelet Volume 7 um3 (7.4-10.4); Red Blood Count 3.57 10^6/ul (4.0-5.4); Red Cell Distribution Width 15 % (10.5-15); White Blood Count 19.4 10^3/ul (3.5-10.8)
[2017-05-05] MEDS: Insulin LISPRO* 1 UNITS UNIT SUBCUT SCH ×3 (06:13→18:48)
[2017-05-05 06:27] LABS: PCO2 Arterial 59 mmHg (35-45)
[2017-05-05] MEDS: Vancomycin(*) 750 MG in NS 0.9% 250 ML* 250 ML IVPB SCH ×3 (06:28→21:16)
[2017-05-05 06:32] LABS: BUN/Creatinine Ratio 10.9 (8-20); Calcium 7.9 mg/dL (8.6-10.3); EGFR African American 50.1 (>60); Potassium 4.7 mmol/L (3.5-5.0)
--- NOTE | 2017-05-05 08:11 | RAD ---
INDICATION: Pneumonia COMPARISON: May 04, 2017 TECHNIQUE: An AP portable view obtained at 0614 hours is submitted. FINDINGS: Bones/Soft Tissues: There are no acute bony findings. There is an endotracheal tube in satisfactory position. Nasogastric tube passes normally through the mediastinum. There is a left IJ catheter terminating in the superior vena cava. Cardiomediastinal: The cardiomediastinal silhouette is normal. The central pulmonary vessels and interstitium are prominent Lungs: There are interstitial and alveolar infiltrates. These could be infectious or be related to an infectious pneumonitis. Pleura: Small bilateral effusions. Other: None IMPRESSION: ENDOTRACHEAL TUBE IN SATISFACTORY POSITION. INTERSTITIAL AND ALVEOLAR INFILTRATES ARE AGAIN NOTED. THERE IS NO APPRECIABLE CHANGE
[2017-05-05] MEDS: methylPREDNISolone 125 MG* 2 ML VIAL IV SCH (08:50)
[2017-05-05] MEDS: Clobetasol 0.05% OINT* 30 GM TUBE TOPICAL SCH (09:17)
[2017-05-05] MEDS: Sodium Chloride TAB* 1 GM PO SCH ×3 (09:21→21:46)
[2017-05-05] MEDS: Baclofen TAB* 10 MG PO SCH ×2 (09:21→21:28)
[2017-05-05] MEDS: Lisinopril TAB* 10 MG PO SCH (09:22)
[2017-05-05] MEDS: Docusate CAP* 100 MG PO SCH (09:22)
[2017-05-05] MEDS: Famotidine IV* 10 MG/ML 2 ML (20 mg) IV SCH (09:22)
[2017-05-05] MEDS: Azithromycin IV(*) 500 MG in NS 0.9% 250 ML* 250 ML IVPB SCH (10:25)
--- NOTE | 2017-05-05 15:57 | PN ---
Critical Care Services: Remains on ventilator with PEEP = 10 cmH2O and FIO2 = 60%. Sedation is with propofol. BP has been labile. Vital Signs: Temp Pulse Resp BP SpO2 FiO2 96.8 F 61 22 107/67 95 60 Physical Exam: Gen:Unresponsive Lungs:Coarse rhonchi. No wheezes or crackles. Extremities: Nonspecific dermopathy rith leg. Fluid Balance (Past 24 Hours): 05/05/17 06:59 Intake Total 3737 Output Total 715 Balance 3022 Weight 204 lb Intake: IV Fluids 2672 1/2 NS Sodium Bicarb 552 3% SALINE ABX - VANCOMYCIN 250 ABX - ZOSYN 200 LR 500 NS 1170 IVPB NS Medicated IV 1035 CC - Norepinephrine/ 642 Levophed CC - Propofol/Diprivan 249 dopamine 144 Oral NG Tube Irrigate Amount 30 Output: NG Tube Drainage Amount 525 Sandoval 190 Other: Estimated Stool Amount Small Labs: 05/04/17 20:30 WBC RBC Hgb Hct MCV MCH MCHC RDW Plt Count MPV INR (Anticoag Therapy) ABG pH 7.31 L ABG pCO2 49 H ABG pO2 91 ABG HCO3 23.3 ABG O2 Saturation 98.7 H ABG Base Excess -2.0 Sodium Potassium Chloride Carbon Dioxide Anion Gap BUN Creatinine Est GFR ( Amer) Est GFR (Non-Af Amer) BUN/Creatinine Ratio Glucose POC Glucose (mg/dL) Calcium 05/05/17 05/05/17 05/05/17 05:50 05:50 05:50 WBC 19.4 H RBC 3.57 L Hgb 11.6 L Hct 35 L MCV 97 H MCH 33 H MCHC 34 RDW 15 Plt Count 235 MPV 7 L INR (Anticoag Therapy) 3.61 H ABG pH ABG pCO2 ABG pO2 ABG HCO3 ABG O2 Saturation ABG Base Excess Sodium 122 L Potassium 4.7 Chloride 90 L Carbon Dioxide 27 Anion Gap 5 BUN 19 Creatinine 1.75 H Glucose 294 H Calcium 7.9 L 05/05/17 06:15 WBC RBC Hgb Hct MCV MCH MCHC RDW Plt Count MPV INR (Anticoag Therapy) ABG pH 7.24 L ABG pCO2 59 H ABG pO2 113 H ABG HCO3 22.0 ABG O2 Saturation 98.5 H ABG Base Excess -3.7 L Sodium Potassium Chloride Carbon Dioxide Anion Gap BUN Creatinine Est GFR ( Amer) Est GFR (Non-Af Amer) BUN/Creatinine Ratio Glucose POC Glucose (mg/dL) Calcium Studies: CXR: Bilateral infltrates and pleural effusions. Micro: Cultures of sputum, blood and urine negative so far. Nutrition: None Impression: 1. Severe CAP with acute respiratory failure - no pathogen identified. 2. Hypercapnia during mechanical ventilation indicates probable COPD (advanced stage). 2. Labile BP - may be due to autonomic neuropathy (related to patient's paraplegia). 3. Poor glycemic control Overall prognosis is poor at this time. Plan: 1. Start enteral tube feedings. 2. D/C steroids (to help glycemic control) 3. Consider D/Cing antibiotics if no pathogen isolated by tomorrow. Prognosis guarded. Critical Care Time: 50 minutes (not including time with patient's brothers)
[2017-05-06] MEDS: Azithromycin IV* 500 MG ADVAN VIAL IVPB SCH (00:27)
[2017-05-06] MEDS: Insulin LISPRO* 1 UNITS UNIT SUBCUT SCH ×6 (00:27→18:22)
[2017-05-06] MEDS: Propofol* 100 ML IV SCH (03:04)
[2017-05-06 05:14] LABS: Hematocrit 33 % (42-52); Mean Corpuscular HGB Conc 33 g/dl (31-36); Mean Corpuscular Hemoglobin 32 pg (27-31); Mean Corpuscular Volume 97 fL (80-94); Mean Platelet Volume 7 um3 (7.4-10.4); Red Blood Count 3.43 10^6/ul (4.0-5.4); Red Cell Distribution Width 16 % (10.5-15); White Blood Count 13.5 10^3/ul (3.5-10.8)
[2017-05-06] MEDS ORDERED: Vancomycin Trough Check NOTE FOLLOW UP ONE (05:30)
[2017-05-06 05:32] LABS: BUN/Creatinine Ratio 13.1 (8-20); Calcium 7.8 mg/dL (8.6-10.3); EGFR African American 35.5 (>60); EGFR Non-African American 27.6 (>60); Potassium 4.2 mmol/L (3.5-5.0)
[2017-05-06] MEDS: Chlorhexidine MOUTHWASH 0.12%* 15 ML UDC TOPICAL SCH ×6 (05:46→20:47)
[2017-05-06 05:58] LABS: Vancomycin Trough 47.3 mcg/mL
[2017-05-06] MEDS: Vancomycin(*) 750 MG in NS 0.9% 250 ML* 250 ML IVPB SCH (06:04)
[2017-05-06] MEDS: Baclofen TAB* 10 MG PO SCH ×2 (09:54→20:47)
[2017-05-06] MEDS: Famotidine IV* 10 MG/ML 2 ML (20 mg) IV SCH (10:29)
--- NOTE | 2017-05-06 10:49 | PN ---
Critical Care Services: Remains on ventilator but ready to consider weaning. Wakes up when propofol held , but does not follow commands. Vital Signs: Temp Pulse Resp BP SpO2 FiO2 95.0 F 64 16 157/95 95 50 Physical Exam: Gen:Eyes open but unresponsive HEENT:No facial assymetry Lungs:coarse rhonchi on both sides Cardiac: Reg rhythm Abdomen: Not distended Extremities:No cyanosis. Fluid Balance (Past 24 Hours): 05/06/17 06:59 Intake Total 2247.5 Output Total 775 Balance 1472.5 Weight 207 lb Intake: IV Fluids 1182.1 1/2 NS Sodium Bicarb 467 3% SALINE ABX - VANCOMYCIN 52.9 ABX - ZOSYN 171.2 LR NS 491 IVPB 745 ABX - VANCOMYCIN 521 ABX - ZOSYN 224 NS Medicated IV 320.4 CC - Norepinephrine/ 94.1 Levophed CC - Propofol/Diprivan 226.3 dopamine Oral NG Tube Irrigate Amount Output: NG Tube Drainage Amount 100 G Tube 200 Sandoval 475 Other: Date of Last Bowel 05/06/17 Movement # Bowel Movements 1 Estimated Stool Amount Large Labs: 05/06/17 05/06/17 05:00 05:00 WBC 13.5 Hgb 11.0 L Hct 33 L MCV 97 H Plt Count 220 INR (Anticoag Therapy) Sodium 130 Potassium 4.2 Chloride 97 L Carbon Dioxide 25 Anion Gap 8 BUN 31 H Creatinine 2.36 H Glucose 175 H Cortisol 8.73 Vancomycin Trough 47.3 H* Studies: Cultures of sputum, blood and urine are negative. Nutrition: Tube feeding started today. Impression: No treatable cause for the presumed pneumonia has been uncovered, but respiratory status is slowly improving. The low cortisol level indicates possible adrenal insufficiency (but needs corroboration with another sample). increasing creatinine may be from antibiotic toxicity. Plan: 1. D/C antibiotics 2. Repeat serum cortisol measurement 3. Attempt spontaneous breathing trials today.. Critical Care Time: 40 minutes (not including time spent discussing case with the patient's 2 brothers).
[2017-05-06] MEDS: Sodium Chloride TAB* 1 GM PO SCH (11:44)
[2017-05-06] MEDS: Clobetasol 0.05% OINT* 30 GM TUBE TOPICAL SCH (12:11)
[2017-05-06] MEDS ORDERED: EPINEPHrine SYR 0.1 MG/ML* (1:10,000) SYRINGE ONE (12:34)
[2017-05-06] MEDS ORDERED: Metoprolol Tartrate IV* 1 MG/ML 5 ML VIAL ONE (12:35)
[2017-05-06] MEDS ORDERED: Amiodarone IV VIAL* 50 MG/ML 3 ML VIAL (150 MG) ONE (12:39)
[2017-05-06] MEDS ORDERED: EPINEPHrine AMP 1 MG/ML ONE (12:52)
[2017-05-06] MEDS ORDERED: Hydrocortisone INJ* 100 MG VIAL ONE (12:56)
[2017-05-06] MEDS: Hydrocortisone INJ* 100 MG VIAL IV SCH (13:11)
[2017-05-06] MEDS ORDERED: EPINEPHrine AMP 1 MG/ML* 1 MG in D5W 250 ML BAG* 250 ML IVPB SCH (13:30)
[2017-05-06 14:02] LABS: Magnesium 2.2 mg/dL (1.9-2.7)
[2017-05-06] MEDS ORDERED: Amiodarone 360 MG IVPREMIX* 360 MG/200 ML BAG IV ONE ×2 (14:16→14:19)
--- NOTE | 2017-05-06 14:29 | PN ---
Progress Note - Progress Note Date of Service: 05/06/17 Note: Patient developed acute-onset atrial fibrillation in early afternoon, and about 20 minutes later had a cardiac arrest associated with TORSADES DE POINTES - successfully resuscitated with epinephrine, d/c cardioversion, and amiodarone. After ROSC, BP was maintained with epinephrine infusion. 12-lead EKG showed normal QT interval. Potassium and magnesium levels OK. patient was awake post- arrest. IMP: Cardiac arrest due to polymorphic VTach. PLAN: Amiodarone infusion to prevent recurrence. NOTE: I spoke to the patient's brother about end-of-life decisions, and patient is now a DNR. Time: 40 minutes (including cardiac arrest).
[2017-05-06 18:15] LABS: Troponin I 1.15 ng/mL (<0.04)
[2017-05-06] MEDS: Amiodarone 360 MG IVPREMIX* 360 MG/200 ML BAG IV SCH (20:05)
[2017-05-07] MEDS: Chlorhexidine MOUTHWASH 0.12%* 15 ML UDC TOPICAL SCH ×3 (00:17→11:03)
[2017-05-07] MEDS: Hydrocortisone INJ* 100 MG VIAL IV SCH (00:17)
[2017-05-07] MEDS: Insulin LISPRO* 1 UNITS UNIT SUBCUT SCH ×2 (00:17→06:52)
[2017-05-07] MEDS ORDERED: Morphine INJ* 2 MG/ML 1 ML SYRINGE IV ONE (04:50)
[2017-05-07] MEDS ORDERED: Morphine INJ* 2 MG/ML 1 ML SYRINGE ONE ×3 (04:54→09:30)
[2017-05-07 06:56] LABS: Hematocrit 30 % (42-52); Hemoglobin 10.4 g/dl (14.0-18.0); Mean Corpuscular HGB Conc 34 g/dl (31-36); Mean Corpuscular Hemoglobin 33 pg (27-31); Mean Corpuscular Volume 96 fL (80-94); Mean Platelet Volume 7 um3 (7.4-10.4); Red Blood Count 3.15 10^6/ul (4.0-5.4); Red Cell Distribution Width 15 % (10.5-15); White Blood Count 11.5 10^3/ul (3.5-10.8)
[2017-05-07 07:02] LABS: BUN/Creatinine Ratio 15.5 (8-20); Calcium 7.6 mg/dL (8.6-10.3); EGFR Non-African American 21.7 (>60)
[2017-05-07] MEDS: Amiodarone 360 MG IVPREMIX* 360 MG/200 ML BAG IV SCH (07:35)
[2017-05-07] MEDS ORDERED: LORazepam INJ* 2 MG/ML 1 ML VIAL IV PUSH ONE (09:00)
[2017-05-07] MEDS ORDERED: LORazepam VIAL (for drip)* 200 MG in D5W 100 ML BAG* 100 ML IVPB SCH (09:00)
[2017-05-07] MEDS ORDERED: Morphine INJ* 10 MG/ML 1 ML SYRINGE IV ONE (09:00)
[2017-05-07] MEDS ORDERED: Morphine PCA 5 MG/ML * Titrate per Protocol PCA SCH (09:00)
[2017-05-07 09:41] VITALS: BP 89/44
[2017-05-07] MEDS: Clobetasol 0.05% OINT* 30 GM TUBE TOPICAL SCH (11:04)
[2017-05-07] MEDS: Famotidine IV* 10 MG/ML 2 ML (20 mg) IV SCH (11:04)
[2017-05-07] MEDS: Baclofen TAB* 10 MG PO SCH (11:04)
--- NOTE | 2017-05-08 04:42 | DS ---
SUMMARY: DATE OF ADMISSION: 05/02/17 DATE OF DEMISE: 05/07/17 HOSPITAL COURSE: This patient was a 67-year-old white male, who was admitted with a community-acquired pneumonia and hypoxemic respiratory failure. The patient was intubated and placed on mechanical ventilation. The patient received empiric antibiotic therapy but cultures were subsequently negative and antibiotics were discontinued. On 05/06/17, the patient developed atrial fibrillation, which rapidly deteriorated to ventricular tachycardia and subsequent cardiac arrest. The ventricular tachycardia was torsades de pointes and the patient was successfully resuscitated after cardioversion, epinephrine, and amiodarone. The patient did awaken after the cardiac arrest and blood pressure was maintained on an epinephrine infusion. Serial troponin levels subsequently were consistent with an acute MS as a cause of the cardiac arrest. Because of the poor overall prognosis in this case, the decision was made by the patient's healthcare proxy (his brothers) to remove him from mechanical ventilation and use general comfort measures only. The patient was subsequently extubated and removed from mechanical ventilation, and comfort was maintained with morphine and ativan infusions. He was pronounced at 9:40 AM on . The brothers were present at the bedside, and an autopsy was denied. FINAL DISCHARGE DIAGNOSES: 1. Acute myocardial infarction. 2. Community-acquired pneumonia. 3. Acute respiratory failure. 4. Circulatory shock. CRITICAL CARE TIME: 40 minutes including initial patient examination and subsequent monitoring of the patient after extubation. [id number]/CPS #: [id number] MTDD
== END 2017-05-07 09:40 | disposition expired | DRG 208 ==
LOC: ED 08:29 → ICU 11:31
PROVIDERS: ADMIT Hospitalist; ATTEND Internal Medicine Critical Care Medicine
PROC: 0BH17EZ Insertion of Endotracheal Airway into Trachea, Via Natural or Artificial Opening (ICD-10-PCS; principal; 2017-05-04)
PROC: 5A1945Z Respiratory Ventilation, 24-96 Consecutive Hours (ICD-10-PCS; 2017-05-04)
PROC: 3E033XZ Introduction of Vasopressor into Peripheral Vein, Percutaneous Approach (ICD-10-PCS; 2017-05-04)
PROC: 03HB33Z Insertion of Infusion Device into Right Radial Artery, Percutaneous Approach (ICD-10-PCS; 2017-05-04)
PROC: 05HN33Z Insertion of Infusion Device into Left Internal Jugular Vein, Percutaneous Approach (ICD-10-PCS; 2017-05-04)
PROC: B544ZZA Ultrasonography of Left Jugular Veins, Guidance (ICD-10-PCS; 2017-05-04)
PROC: 0DH67UZ Insertion of Feeding Device into Stomach, Via Natural or Artificial Opening (ICD-10-PCS; 2017-05-06)
PROC: 5A2204Z Restoration of Cardiac Rhythm, Single (ICD-10-PCS; 2017-05-06)
PROC: 0BP1XDZ Removal of Intraluminal Device from Trachea, External Approach (ICD-10-PCS; 2017-05-07)
DX: J18.9 Pneumonia, unspecified organism (principal); I21.3 ST elevation (STEMI) myocardial infarction of unspecified site; J96.01 Acute respiratory failure with hypoxia; J96.02 Acute respiratory failure with hypercapnia; E87.2 Acidosis; G82.20 Paraplegia, unspecified; E22.2 Syndrome of inappropriate secretion of antidiuretic hormone; N39.0 Urinary tract infection, site not specified; I47.2 Ventricular tachycardia; J98.19 Other pulmonary collapse; I10 Essential (primary) hypertension; E78.5 Hyperlipidemia, unspecified; N31.9 Neuromuscular dysfunction of bladder, unspecified; G89.29 Other chronic pain; E11.65 Type 2 diabetes mellitus with hyperglycemia; I48.91 Unspecified atrial fibrillation; Z66 Do not resuscitate; I46.2 Cardiac arrest due to underlying cardiac condition; N28.9 Disorder of kidney and ureter, unspecified; R57.8 Other shock; J98.01 Acute bronchospasm; Z87.440 Personal history of urinary (tract) infections; Z86.718 Personal history of other venous thrombosis and embolism; Z80.1 Family history of malignant neoplasm of trachea, bronchus and lung; Z80.0 Family history of malignant neoplasm of digestive organs; Z87.891 Personal history of nicotine dependence
CPT/HCPCS: 36415; 36600; 71010; 71020; 80048; 80053; 80202; 81003; 81015; 82330; 82533; 82550; 82553; 82803; 82947; 83036; 83605; 83735; 83880; 83930; 83935; 84100; 84300; 84484; 84550; 85025; 85027; 85610; 85730; 86140; 87040; 87070; 87086; 87205; 87899; 93005; 94003; 94640; 94760; A9270-GY; J0171; J0282; J0330; J0456; J0696; J1265; J1720; J2250; J2270; J2543; J2704; J2930; J3105; J3370; J7611